=== PATIENT | male | born 1955 | race Caucasian/White ===

== ENCOUNTER 2021-10-13 16:35 | Inpatient (IN) | payer MEDICARE ==
[~2021-10-13] VITALS: Ht 180.3 cm; Wt 90.7 kg
[2021-10-13 17:13] LABS: BASOPHILS % 0.7 % (0.0-1.0); EOSINOPHILS # (AUTO) 0.1 (0.0-0.4); EOSINOPHILS % 1.5 % (0.0-6.0); HEMATOCRIT 30.9 % (38.2-49.6); HEMOGLOBIN 9.8 g/dL (14.0-18.0); LYMPHOCYTES # (AUTO) 1.2 (1.0-3.2); LYMPHOCYTES % 19.9 % (18.0-39.1); MEAN CORPUSCULAR HEMOGLOBIN 32.8 pg (28-32); MEAN CORPUSCULAR HGB CONC 31.7 g/dL (31-35); MEAN CORPUSCULAR VOLUME 103.3 fL (81-99); MONOCYTES # (AUTO) 0.5 (0.2-0.8); MONOCYTES % 8.2 % (4.4-11.3); NEUTROPHILS # (AUTO) 4.2 (2.1-6.9); PLATELET COUNT 266 x10e3/uL (140-360); RED BLOOD COUNT 2.99 x10e6/uL (4.3-5.7); RED CELL DISTRIBUTION WIDTH 15.5 % (11.7-14.4)
[2021-10-13 17:37] LABS: ALBUMIN 2.7 g/dL (3.5-5.0); ALBUMIN/GLOBULIN RATIO 0.7 (0.8-2.0); CALCIUM 8.4 mg/dL (8.4-10.2); CREATININE, SERUM 1.69 mg/dL (0.72-1.25)
[2021-10-13] MEDS ORDERED: DEXTROSE 50% SYRINGE 50 ML IV PRN (19:30)
[2021-10-13] MEDS ORDERED: ONDANSETRON HCL INJ 2MG/ML 2ML 2 MG/ML VIAL IV PRN (19:30)
[2021-10-13 19:55] LABS: INR 0.89; PROTHROMBIN TIME 12.9 seconds (11.9-14.5)
[2021-10-13 20:00] VITALS: BP 137/76
[2021-10-13] MEDS: INSULIN REGULAR, HUMAN 100 UNIT/1 ML SQ SCH (21:00)
[2021-10-13 21:05] VITALS: BP 137/76
[2021-10-13] MEDS: SODIUM CHLORIDE 0.9% 1000ML 1,000 ML IV SCH (21:51)
[2021-10-13] MEDS ORDERED: SODIUM CHLORIDE 0.9% 1000ML 1,000 ML ONE (21:52)
[2021-10-13 22:08] VITALS: BP 137/76
[2021-10-13] MEDS ORDERED: METFORMIN HCL500 MG PO (22:35)
[2021-10-13] MEDS ORDERED: ATORVASTATIN CA10 MG PO (22:36)
[2021-10-13] MEDS ORDERED: FOLIC ACID0.4 MG PO (22:37)
[2021-10-13] MEDS ORDERED: POTASSIUM CHLO10 ME1 PO (22:37)
[2021-10-13] MEDS ORDERED: ASPIRIN81 MG PO (22:38)
[2021-10-13] MEDS ORDERED: LISINOPRIL5 MG PO (22:38)
[2021-10-13] MEDS ORDERED: AMLODIPINE BESYL5 MG PO (22:38)
[2021-10-13] MEDS ORDERED: FEROSUL325 MG PO (22:40)
[2021-10-13] MEDS ORDERED: FUROSEMIDE40 MG PO (22:40)
[2021-10-13] MEDS ORDERED: METOPROLOL SUCC25 MG PO (22:40)
[2021-10-13] MEDS ORDERED: GLIMEPIRIDE2 MG PO (22:41)
[2021-10-13] MEDS ORDERED: CLOPIDOGREL75 MG PO (22:41)
[2021-10-14] VITALS (9 sets, daily range): BP systolic 118–130; BP diastolic 64–73
[2021-10-14] MEDS: SODIUM CHLORIDE 0.9% 1000ML 1,000 ML IV SCH ×3 (03:41→19:30)
[2021-10-14] MEDS ORDERED: SODIUM CHLORIDE 0.9% 1000ML 1,000 ML ONE ×2 (03:47→12:28)
[2021-10-14 05:48] LABS: BASOPHILS # (AUTO) 0.1 (0.0-0.1); BASOPHILS % 0.7 % (0.0-1.0); EOSINOPHILS # (AUTO) 0.1 (0.0-0.4); EOSINOPHILS % 1.8 % (0.0-6.0); HEMATOCRIT 27.9 % (38.2-49.6); HEMOGLOBIN 8.9 g/dL (14.0-18.0); LYMPHOCYTES # (AUTO) 1.2 (1.0-3.2); LYMPHOCYTES % 18.2 % (18.0-39.1); MEAN CORPUSCULAR HGB CONC 31.9 g/dL (31-35); MEAN CORPUSCULAR VOLUME 103.3 fL (81-99); MONOCYTES # (AUTO) 0.6 (0.2-0.8); MONOCYTES % 8.1 % (4.4-11.3); NEUTROPHILS # (AUTO) 4.8 (2.1-6.9); NEUTROPHILS % 70.6 % (38.7-80.0); PLATELET COUNT 247 x10e3/uL (140-360); RED CELL DISTRIBUTION WIDTH 15.6 % (11.7-14.4)
[2021-10-14 06:15] LABS: ALBUMIN 2.3 g/dL (3.5-5.0); ALBUMIN/GLOBULIN RATIO 0.6 (0.8-2.0); ANION GAP 11.9 mmol/L (8-16); CALCIUM 7.9 mg/dL (8.4-10.2); CREATININE, SERUM 1.41 mg/dL (0.72-1.25); POTASSIUM 3.9 mmol/L (3.5-5.1)
[2021-10-14 06:16] LABS: BILIRUBIN,DIRECT 9.1 mg/dL (0.0-0.5)
[2021-10-14 06:25] LABS: % IRON SATURATION 19 % (15-50); IRON 50 ug/dL (65-175); TOTAL IRON BINDING CAPACITY 263 ug/dL (261-478); TRANSFERRIN 188 mg/dL (174-364)
[2021-10-14] MEDS: INSULIN REGULAR, HUMAN 100 UNIT/1 ML SQ SCH ×4 (07:30→21:00)
[2021-10-14] MEDS ORDERED: TRAMADOL HCL 50 MG TAB PO PRN (09:30)
[2021-10-14] MEDS: ASPIRIN 81 MG CHEW TAB PO SCH (09:45)
[2021-10-14] MEDS: CYANOCOBALAMIN INJ 1,000 MCG/ML VIAL IM SCH (09:45)
[2021-10-14] MEDS: AMLODIPINE BESYLATE 5 MG TAB PO SCH (09:45)
[2021-10-14] MEDS: POTASSIUM CHLORIDE 10MEQ EA PO SCH (09:45)
[2021-10-14] MEDS: METFORMIN HCL 500 MG TAB PO SCH ×2 (09:45→16:58)
[2021-10-14] MEDS: METOPROLOL SUCCINATE 25 MG TAB XL PO SCH (09:45)
[2021-10-14] MEDS: GLIMEPIRIDE 2 MG TAB PO SCH (09:45)
[2021-10-14] MEDS: LISINOPRIL 2.5 MG TAB PO SCH (09:45)
[2021-10-14] MEDS: FUROSEMIDE 40 MG TAB PO SCH (09:45)
[2021-10-14] MEDS: CLOPIDOGREL BISULFATE 75 MG TAB PO SCH (09:45)
[2021-10-14] MEDS: FERROUS SULFATE 325 MG TAB PO SCH (09:45)
[2021-10-14] MEDS ORDERED: INSULIN REGULAR, HUMAN 100 UNIT/1 ML ONE (12:29)
[2021-10-15] VITALS (8 sets, daily range): BP systolic 111–148; BP diastolic 60–84
[2021-10-15] MEDS: SODIUM CHLORIDE 0.9% 1000ML 1,000 ML IV SCH ×2 (01:52→12:13)
[2021-10-15 06:05] LABS: ALBUMIN 2.2 g/dL (3.5-5.0); ALBUMIN/GLOBULIN RATIO 0.6 (0.8-2.0); ANION GAP 11.9 mmol/L (8-16); CREATININE, SERUM 1.29 mg/dL (0.72-1.25); POTASSIUM 3.9 mmol/L (3.5-5.1)
[2021-10-15] MEDS: INSULIN REGULAR, HUMAN 100 UNIT/1 ML SQ SCH ×4 (07:30→22:15)
[2021-10-15] MEDS: METFORMIN HCL 500 MG TAB PO SCH ×2 (08:20→17:49)
[2021-10-15] MEDS: GLIMEPIRIDE 2 MG TAB PO SCH (08:20)
[2021-10-15] MEDS: CYANOCOBALAMIN INJ 1,000 MCG/ML VIAL IM SCH (09:04)
[2021-10-15] MEDS: AMLODIPINE BESYLATE 5 MG TAB PO SCH (09:04)
[2021-10-15] MEDS: POTASSIUM CHLORIDE 10MEQ EA PO SCH (09:04)
[2021-10-15] MEDS: FUROSEMIDE 40 MG TAB PO SCH (09:04)
[2021-10-15] MEDS: FERROUS SULFATE 325 MG TAB PO SCH (09:04)
[2021-10-15] MEDS: ASPIRIN 81 MG CHEW TAB PO SCH (09:04)
[2021-10-15] MEDS: LISINOPRIL 2.5 MG TAB PO SCH (09:04)
[2021-10-15] MEDS: METOPROLOL SUCCINATE 25 MG TAB XL PO SCH (09:05)
[2021-10-15] MEDS ORDERED: FENTANYL CITRATE/PF 100MCG/2 ML INJ ONE (12:50)
[2021-10-15] MEDS ORDERED: SEVOFLURANE INHAL SOLN 250 ML PEN BTL ONE (13:19)
[2021-10-15] MEDS ORDERED: POVIDONE IODINE 0.05% 0.05 % ML PO ONE (13:19)
[2021-10-15] MEDS ORDERED: ONDANSETRON HCL INJ 2MG/ML 2ML 2 MG/ML VIAL ONE (13:19)
[2021-10-15] MEDS ORDERED: LIDOCAINE HCL 2% JELLY 5 ML TUBE ONE (13:19)
[2021-10-15] MEDS ORDERED: SUCCINYLCHOLINE CHLORIDE 20 MG/ML 10ML VIAL ONE (13:19)
[2021-10-15] MEDS ORDERED: ROCURONIUM BROMIDE 10 MG/ML 5ML VIAL IV ONE (13:19)
[2021-10-15] MEDS ORDERED: PROPOFOL IV EMULSION 10 MG/ML 20 ML VIAL ONE (13:19)
[2021-10-15] MEDS ORDERED: LIDOCAINE HCL 2% LOCAL INJ 5 ML SDV VIAL INJ ONE (13:19)
[2021-10-15] MEDS ORDERED: ONDANSETRON HCL 4 MG ORAL DISINTEGRATING TAB PO PRN (13:45)
[2021-10-15] MEDS ORDERED: INDOMETHACIN 50 MG SUPP.RECT RC ONE (16:24)
[2021-10-15] MEDS ORDERED: IOPAMIDOL 300MG/ML 50ML INFUS..BTL IV ONE (16:25)
[2021-10-15] MEDS: CLOPIDOGREL BISULFATE 75 MG TAB PO SCH (17:49)
[2021-10-16] VITALS: BP 122/72
[2021-10-16 04:00] VITALS: BP 111/67
[2021-10-16] MEDS: SODIUM CHLORIDE 0.9% 1000ML 1,000 ML IV SCH ×2 (04:37→04:50)
[2021-10-16 06:55] LABS: ALBUMIN 2.2 g/dL (3.5-5.0); ALBUMIN/GLOBULIN RATIO 0.7 (0.8-2.0); CALCIUM 8.2 mg/dL (8.4-10.2); CREATININE, SERUM 1.17 mg/dL (0.72-1.25)
[2021-10-16] MEDS: INSULIN REGULAR, HUMAN 100 UNIT/1 ML SQ SCH ×2 (07:30→11:30)
[2021-10-16 08:12] VITALS: BP 125/72
[2021-10-16] MEDS: GLIMEPIRIDE 2 MG TAB PO SCH (08:30)
[2021-10-16 08:54] VITALS: BP 125/72
[2021-10-16] MEDS: AMLODIPINE BESYLATE 5 MG TAB PO SCH (09:57)
[2021-10-16] MEDS: LISINOPRIL 2.5 MG TAB PO SCH (09:57)
[2021-10-16] MEDS: METOPROLOL SUCCINATE 25 MG TAB XL PO SCH (09:57)
[2021-10-16] MEDS: METFORMIN HCL 500 MG TAB PO SCH (09:57)
[2021-10-16] MEDS: FUROSEMIDE 40 MG TAB PO SCH (09:57)
[2021-10-16] MEDS: FERROUS SULFATE 325 MG TAB PO SCH (09:57)
[2021-10-16] MEDS: CYANOCOBALAMIN INJ 1,000 MCG/ML VIAL IM SCH (09:57)
[2021-10-16] MEDS: POTASSIUM CHLORIDE 10MEQ EA PO SCH (09:58)
[2021-10-16] MEDS: ASPIRIN 81 MG CHEW TAB PO SCH (12:04)
[2021-10-16] MEDS: CLOPIDOGREL BISULFATE 75 MG TAB PO SCH (12:04)
[2021-10-16 12:54] VITALS: BP 133/67
[2021-10-16 16:26] VITALS: BP 133/70
== END 2021-10-16 17:05 | disposition home or self-care (01) | DRG 446 ==
LOC: ER 17:22 → MED/SURG3 19:20 → UNDOADMIN 20:21 → MED/SURG3 20:21
PROVIDERS: ADMIT Internal Medicine; ATTEND Internal Medicine
PROC: BF101ZZ Fluoroscopy of Bile Ducts using Low Osmolar Contrast (ICD-10-PCS; 2021-10-15)
PROC: 0FJB8ZZ Inspection of Hepatobiliary Duct, Via Natural or Artificial Opening Endoscopic (ICD-10-PCS; principal; 2021-10-15 16:16)
DX: K83.1 Obstruction of bile duct (principal); I25.10 Atherosclerotic heart disease of native coronary artery without angina pectoris; E11.22 Type 2 diabetes mellitus with diabetic chronic kidney disease; N18.30 Chronic kidney disease, stage 3 unspecified; D63.8 Anemia in other chronic diseases classified elsewhere; Z90.49 Acquired absence of other specified parts of digestive tract; Z95.2 Presence of prosthetic heart valve; Z95.1 Presence of aortocoronary bypass graft; E53.8 Deficiency of other specified B group vitamins; Z20.822 Contact with and (suspected) exposure to COVID-19; Z79.82 Long term (current) use of aspirin; Z79.84 Long term (current) use of oral hypoglycemic drugs
CPT/HCPCS: 36415; 43260; 74176; 74181; 74328; 76700; 80053; 82140; 82248; 82390; 82607; 82746; 82948; 83540; 83615; 83690; 84155; 84466; 85025; 85045; 85610; 86039; 86255; 86301; 94799; 96372; 99251; 99284; J0330; J1817; J2001; J2405; J3010; J3420; J7030; U0002

== ENCOUNTER 2022-01-15 03:01 | Emergency (ER) | payer MEDICARE ==
[~2022-01-15] VITALS: Ht 332.7 cm; Wt 90.7 kg
[~2022-01-15 03:01] MED LIST: AMLODIPINE BESYL5 MG PO; ASPIRIN81 MG PO; ATORVASTATIN CA10 MG PO; CLOPIDOGREL75 MG PO; FEROSUL325 MG PO; FOLIC ACID0.4 MG PO; FUROSEMIDE40 MG PO; GLIMEPIRIDE2 MG PO; LISINOPRIL5 MG PO; METFORMIN HCL500 MG PO; METOPROLOL SUCC25 MG PO; POTASSIUM CHLO10 ME1 PO
[2022-01-15 03:21] LABS: BASOPHILS # (AUTO) 0.1 (0.0-0.1); BASOPHILS % 0.5 % (0.0-1.0); EOSINOPHILS # (AUTO) 0.1 (0.0-0.4); EOSINOPHILS % 0.9 % (0.0-6.0); HEMATOCRIT 34.1 % (38.2-49.6); HEMOGLOBIN 10.8 g/dL (14.0-18.0); LYMPHOCYTES # (AUTO) 0.8 (1.0-3.2); LYMPHOCYTES % 7.1 % (18.0-39.1); MEAN CORPUSCULAR HEMOGLOBIN 32.4 pg (28-32); MEAN CORPUSCULAR HGB CONC 31.7 g/dL (31-35); MEAN CORPUSCULAR VOLUME 102.4 fL (81-99); MONOCYTES # (AUTO) 0.6 (0.2-0.8); MONOCYTES % 5.2 % (4.4-11.3); NEUTROPHILS # (AUTO) 9.2 (2.1-6.9); NEUTROPHILS % 85.9 % (38.7-80.0); PLATELET COUNT 150 x10e3/uL (140-360); RED BLOOD COUNT 3.33 x10e6/uL (4.3-5.7); RED CELL DISTRIBUTION WIDTH 12.2 % (11.7-14.4)
[2022-01-15 03:39] LABS: ALBUMIN 3.6 g/dL (3.5-5.0); ALBUMIN/GLOBULIN RATIO 0.9 (0.8-2.0); ANION GAP 12.2 mmol/L (8-16); CALCIUM 8.5 mg/dL (8.4-10.2); CREATININE, SERUM 1.55 mg/dL (0.72-1.25); POTASSIUM 4.2 mmol/L (3.5-5.1)
[2022-01-15] MEDS ORDERED: IOPAMIDOL 370 MG/ML 100 ML INFUS..BTL INJ ONE (04:34)
[2022-01-15] MEDS ORDERED: MUCINEX DM ER1 EAC1 PO (06:04)
[2022-01-15] MEDS ORDERED: PROAIR HFA INH8.5 GM INH (06:04)
== END 2022-01-15 06:20 | disposition home or self-care (01) ==
LOC: ER 03:36
DX: R50.9 Fever, unspecified (principal); U07.1 COVID-19; R06.02 Shortness of breath; R05.9 Cough, unspecified; E11.65 Type 2 diabetes mellitus with hyperglycemia; I10 Essential (primary) hypertension; E78.5 Hyperlipidemia, unspecified; Z95.1 Presence of aortocoronary bypass graft
CPT/HCPCS: 36415; 71045; 71260; 80053; 83605; 83880; 84484; 85025; 87040; 93005; 99284; Q9967; U0002

== ENCOUNTER 2022-05-01 18:42 | Emergency (ER) | payer MEDICARE ==
[~2022-05-01] VITALS: Ht 180.3 cm; Wt 99.8 kg
[~2022-05-01 18:42] MED LIST changes: +MUCINEX DM ER1 EAC1 PO; +PROAIR HFA INH8.5 GM INH
[2022-05-01] MEDS ORDERED: ACETAMINOPHEN 325 MG TAB PO ONE (19:00)
[2022-05-01 19:01] LABS: BASOPHILS % 0.4 % (0.0-1.0); EOSINOPHILS % 0.6 % (0.0-6.0); HEMATOCRIT 37.2 % (38.2-49.6); HEMOGLOBIN 11.8 g/dL (14.0-18.0); LYMPHOCYTES # (AUTO) 1.2 (1.0-3.2); LYMPHOCYTES % 16.2 % (18.0-39.1); MEAN CORPUSCULAR HEMOGLOBIN 31.7 pg (28-32); MEAN CORPUSCULAR HGB CONC 31.7 g/dL (31-35); MONOCYTES # (AUTO) 0.4 (0.2-0.8); MONOCYTES % 5.3 % (4.4-11.3); NEUTROPHILS # (AUTO) 5.5 (2.1-6.9); NEUTROPHILS % 77.2 % (38.7-80.0); PLATELET COUNT 161 x10e3/uL (140-360); RED BLOOD COUNT 3.72 x10e6/uL (4.3-5.7); RED CELL DISTRIBUTION WIDTH 13.9 % (11.7-14.4)
[2022-05-01 19:10] LABS: INR 0.95; PROTHROMBIN TIME 13.5 seconds (11.9-14.5)
[2022-05-01 19:11] LABS: PARTIAL THROMBOPLASTIN TIME 34.3 seconds (23.8-35.5)
[2022-05-01] MEDS ORDERED: ACETAMINOPHEN 325 MG TAB ONE (19:12)
[2022-05-01 19:17] LABS: ALBUMIN 4.1 g/dL (3.5-5.0); ALBUMIN/GLOBULIN RATIO 1.1 (0.8-2.0); ANION GAP 17.2 mmol/L (8-16); CALCIUM 8.8 mg/dL (8.4-10.2); CREATININE, SERUM 1.68 mg/dL (0.72-1.25); POTASSIUM 4.2 mmol/L (3.5-5.1)
[2022-05-01 19:23] LABS: CREATINE KINASE MB 2.5 ng/mL (0-5.0)
[2022-05-01] MEDS ORDERED: FUROSEMIDE INJ 10 MG/ML 4 ML VIAL IV ONE (19:45)
== END 2022-05-01 22:45 | disposition other institution (70) ==
LOC: ER 18:47
DX: R50.9 Fever, unspecified (principal); J18.9 Pneumonia, unspecified organism; R09.02 Hypoxemia; E11.65 Type 2 diabetes mellitus with hyperglycemia; I50.9 Heart failure, unspecified; Z20.822 Contact with and (suspected) exposure to COVID-19; Z99.81 Dependence on supplemental oxygen
CPT/HCPCS: 36415; 71045; 80053; 82550; 82553; 83605; 83880; 84484; 85025; 85610; 85730; 87040; 99284; J0456; J0696; J1940; J7050; U0002

== ENCOUNTER 2022-12-14 10:00 | Emergency (ER) | payer MEDICARE ==
[~2022-12-14] VITALS: Ht 180.3 cm; Wt 99.8 kg
[~2022-12-14 10:00] MED LIST changes: +NAPROSYN500 MG PO
[2022-12-14] MEDS ORDERED: ONDANSETRON HCL INJ 2MG/ML 2ML 2 MG/ML VIAL IV STA (10:15)
[2022-12-14] MEDS ORDERED: KETOROLAC TROMETHAMINE 30 MG/ML VIAL IV STA (10:15)
[2022-12-14] MEDS ORDERED: SODIUM CHLORIDE 0.9% 1000ML 1,000 ML IV SCH (10:15)
[2022-12-14] MEDS ORDERED: ACETAMINOPHEN 325 MG TAB PO ONE (10:15)
[2022-12-14 10:30] LABS: BASOPHILS % 0.2 % (0.0-1.0); EOSINOPHILS % 0.2 % (0.0-6.0); HEMATOCRIT 34.9 % (38.2-49.6); HEMOGLOBIN 11.4 g/dL (14.0-18.0); LYMPHOCYTES # (AUTO) 0.5 (1.0-3.2); LYMPHOCYTES % 2.8 % (18.0-39.1); MEAN CORPUSCULAR HEMOGLOBIN 31.7 pg (28-32); MEAN CORPUSCULAR HGB CONC 32.7 g/dL (31-35); MEAN CORPUSCULAR VOLUME 96.9 fL (81-99); MONOCYTES # (AUTO) 0.8 (0.2-0.8); MONOCYTES % 4.6 % (4.4-11.3); NEUTROPHILS # (AUTO) 15.5 (2.1-6.9); NEUTROPHILS % 91.8 % (38.7-80.0); PLATELET COUNT 169 x10e3/uL (140-360); RED CELL DISTRIBUTION WIDTH 13.8 % (11.7-14.4)
[2022-12-14 10:54] LABS: ALBUMIN 3.8 g/dL (3.5-5.0); ALBUMIN/GLOBULIN RATIO 1.2 (0.8-2.0); ANION GAP 14.7 mmol/L (8-16); CALCIUM 9.2 mg/dL (8.4-10.2); CREATININE, SERUM 1.62 mg/dL (0.72-1.25); POTASSIUM 4.7 mmol/L (3.5-5.1)
[2022-12-14] MEDS ORDERED: DOXYCYCLINE HY100 MG PO (13:01)
[2022-12-14] MEDS ORDERED: CEFDINIR300 MG PO (13:01)
[2022-12-14 13:10] VITALS: BP 141/74; PULSE 76; RESP 17; TEMP 98.9; O2SAT 100
== END 2022-12-14 13:11 | disposition home or self-care (01) ==
LOC: ER 10:04
DX: R50.9 Fever, unspecified (principal); Z95.1 Presence of aortocoronary bypass graft; E78.5 Hyperlipidemia, unspecified; I11.0 Hypertensive heart disease with heart failure; I50.9 Heart failure, unspecified; E11.9 Type 2 diabetes mellitus without complications; Z79.82 Long term (current) use of aspirin; Z79.84 Long term (current) use of oral hypoglycemic drugs; Z79.899 Other long term (current) drug therapy; Z90.49 Acquired absence of other specified parts of digestive tract
CPT/HCPCS: 36415; 71045; 80053; 83605; 85025; 87040; 99284; C9113; J1885; J2405; J7030

== ENCOUNTER 2023-04-19 00:14 | Emergency (ER) | payer MEDICARE ==
[~2023-04-19] VITALS: Ht 180.3 cm; Wt 104.3 kg
[~2023-04-19 00:14] MED LIST changes: +CEFDINIR300 MG PO; +DOXYCYCLINE HY100 MG PO
[2023-04-19] MEDS ORDERED: OXYMETAZOLINE HCL 0.05% NAS 1 SPRAY BTL ONE (00:30)
[2023-04-19 00:53] LABS: BASOPHILS % 0.7 % (0.0-1.0); EOSINOPHILS # (AUTO) 0.1 (0.0-0.4); EOSINOPHILS % 1.5 % (0.0-6.0); HEMATOCRIT 27.8 % (38.2-49.6); HEMOGLOBIN 8.4 g/dL (14.0-18.0); LYMPHOCYTES # (AUTO) 0.8 (1.0-3.2); MEAN CORPUSCULAR HEMOGLOBIN 30.7 pg (28-32); MEAN CORPUSCULAR HGB CONC 30.2 g/dL (31-35); MEAN CORPUSCULAR VOLUME 101.5 fL (81-99); MONOCYTES # (AUTO) 0.5 (0.2-0.8); MONOCYTES % 8.7 % (4.4-11.3); NEUTROPHILS # (AUTO) 4.4 (2.1-6.9); NEUTROPHILS % 75.6 % (38.7-80.0); PLATELET COUNT 216 x10e3/uL (140-360); RED BLOOD COUNT 2.74 x10e6/uL (4.3-5.7); RED CELL DISTRIBUTION WIDTH 18.5 % (11.7-14.4); WHITE BLOOD COUNT 5.86 x10e3/uL (4.8-10.8)
[2023-04-19 01:02] LABS: INR 1.34; PROTHROMBIN TIME 16.9 seconds (11.9-14.5)
[2023-04-19 01:03] LABS: PARTIAL THROMBOPLASTIN TIME 37.1 seconds (23.8-35.5)
[2023-04-19 01:09] LABS: ANION GAP 14.4 mmol/L (8-16); CALCIUM 9.2 mg/dL (8.4-10.2); CREATININE, SERUM 1.87 mg/dL (0.72-1.25); POTASSIUM 4.4 mmol/L (3.5-5.1)
[2023-04-19] MEDS ORDERED: ACETAMINOPHEN 325 MG TAB PO ONE (01:45)
[2023-04-19 02:15] VITALS: O2SAT 98
== END 2023-04-19 02:40 | disposition home or self-care (01) ==
LOC: ER 00:18
DX: R04.0 Epistaxis (principal); M79.662 Pain in left lower leg; M79.661 Pain in right lower leg; R60.9 Edema, unspecified
CPT/HCPCS: 36415; 80048; 85025; 85610; 85730; 99284